=== PATIENT | female | born 1980 | race African-American/Black ===

== ENCOUNTER 2017-08-26 14:42 | Inpatient (IN) ==
[2017-08-26] MEDS ORDERED: LEVOFLOXACIN INJ 750 MG in PREMIX 1 EACH IV STA (15:04)
[2017-08-26] MEDS ORDERED: ONDANSETRON 4 MG/2 ML VIAL IV STA (15:04)
[2017-08-26] MEDS ORDERED: methylPREDNISolone SOD SUC 125 MG/2 ML VIAL IV STA ×2 (15:04→16:28)
[2017-08-26] MEDS ORDERED: ALBUTEROL NEB SOLN 5 MG/ML 20 ML/BOTTLE RESP TX SCH (15:30)
[2017-08-26 15:49] LABS: Basophils % 0.3 % (0.0-0.8); Eosinophils # 0.1 10*3/uL (0.0-0.87); Eosinophils % 0.5 % (0.00-10.9); Hematocrit 36.2 VOL% (35.7-47.0); Hemoglobin 11.5 GM/DL (12.0-16.0); Immature Granulocytes % 0.7 %; Immature Granulocytes Absolute 0.07 #; Lymphocytes # 0.6 10*3/uL (1.4-4.0); Lymphocytes % 5.8 % (21.3-54.2); Mean Corpuscular HGB Conc 31.8 GM/DL (32-36); Mean Corpuscular Hemoglobin 27 PG (27-34); Mean Corpuscular Volume 84.4 FL (87-102); Mean Platelet Volume 10.5 FL (9.6-12.0); Monocytes # 0.1 10*3/uL (0.11-0.8); Monocytes % 1.3 % (1.7-12.7); Neutrophils # 8.7 10*3/uL (1.4-7.4); Neutrophils % 91.4 % (38.7-73.9); Platelet Count 304 T/CUMM (130-400); Red Blood Count 4.29 MC/CUMM (3.8-5.5); Red Cell Distribution Width 15.9 % (9.3-17.3); White Blood Count 9.6 T/CUMM (4-12)
[2017-08-26 15:58] LABS: PT Patient Result 10.3 SECS; Partial Thromboplastin Time 28.6 SECS (0-40)
[2017-08-26 16:16] LABS: Alanine Aminotransferase 33 U/L (13-56); Albumin 3.7 G/DL (3.4-5.0); Alkaline Phosphatase 55 U/L (45-117); Aspartate Amino Transferase 32 U/L (0-37); Blood Urea Nitrogen 14 MG/DL (7-18); Calcium 8.8 MG/DL (8.5-10.1); Glucose 129 MG/DL (74-106); Osmolality,Calculated 279.5 MOS/KG (273-304); Potassium 3.7 MMOL/L (3.5-5.1); Sodium 139 MMOL/L (136-145); Total Protein 8.2 G/DL (6.4-8.3); Troponin I Only < 0.015 NG/ML (0.00-0.045)
[2017-08-26] MEDS ORDERED: ALBUTEROL NEB SOLN 5 MG/ML 20 ML/BOTTLE CONT NEB STA (16:28)
[2017-08-26 16:36] LABS: Anisocytosis Slight; Band Neutrophils 2 % (0-10); Eosinophils 2 % (0-10); Lymphocytes 6 % (20-55); Segmented Neutrophils 88 % (50-85); Total Cells Counted 100
[2017-08-26 16:37] LABS: Platelet Estimate Normal; Poikilocytosis Slight
[2017-08-26 17:04] LABS: Apearance,Urine CLEAR (Clear); Bilirubin,Urine Negative (Negative); Blood, Urine Negative (Negative); Glucose,Urine (UA) 50 mg/dL (Negative); Ketones,Urine 20 mg/dL (Negative); Mucus,Urine Few /LPF (Occasional); Nitrite,Urine Negative (Negative); Protein,Urine Negative; Squamous Epithelial Cell,Urine Occasional /HPF (0-10); Urine Color Yellow (Yellow); Urine Specific Gravity 1.023 (1.001-1.035); Urine Urobilinogen < 2.0 EU/DL (0.2-1.0); WBC,Urine 1 /HPF (0-6)
[2017-08-26 17:11] LABS: Barbiturates Screen,Urine Negative (Negative); Benzodiazepines Screen,Urine Positive (Negative); Cannabinoid Screen,Urine Negative (Negative); Opiate Screen,Urine Negative (Negative); Phencyclidine Screen,Urine Negative (Negative)
[2017-08-26] MEDS ORDERED: ACETAMINOPHEN 325 MG TABLET PO PRN (18:44)
[2017-08-26] MEDS ORDERED: guaiFENesin/DM ER 600-30 MG TABLET PO PRN (18:44)
[2017-08-26] MEDS ORDERED: methylPREDNISolone SOD SUC 125 MG/2 ML VIAL IV SCH ×2 (19:00→22:00)
[2017-08-26] MEDS ORDERED: DEXTROSE 50% 25 GM/50 ML VIAL IV PRN (19:13)
[2017-08-26] MEDS ORDERED: GLUCAGON 1 MG VIAL IM PRN (19:13)
[2017-08-26] MEDS ORDERED: QUEtiapine 100 MG TABLET PO PRN (19:14)
[2017-08-26] MEDS ORDERED: MONTELUKAST 10 MG TABLET PO SCH (21:00)
[2017-08-26] MEDS: ROSUVASTATIN 20 MG TABLET PO SCH (22:26)
[2017-08-26] MEDS: metFORMIN 500 MG TABLET PO SCH (22:27)
[2017-08-26] MEDS: MONTELUKAST 10 MG TABLET PO SCH (22:27)
[2017-08-26] MEDS: CARVEDILOL 6.25 MG TABLET PO SCH (22:27)
[2017-08-26] MEDS: DOCUSATE SODIUM 100 MG CAPSULE PO SCH (22:27)
[2017-08-26] MEDS: INSULIN GLARGINE 100 UNIT/ML SUBCUT SCH (22:29)
[2017-08-26] MEDS: methylPREDNISolone SOD SUC 40 MG/1 ML VIAL IV SCH (22:37)
[2017-08-27] MEDS: ALBUTEROL 2.5 MG/3 ML NEB RESP TX SCH ×5 (00:18→23:58)
[2017-08-27] MEDS: methylPREDNISolone SOD SUC 40 MG/1 ML VIAL IV SCH (04:43)
[2017-08-27] MEDS: ALBUTEROL 2.5 MG/3 ML NEB RESP TX PRN ×2 (04:58→10:48)
[2017-08-27] MEDS ORDERED: PANTOPRAZOLE 40 MG TABLET PO SCH (09:00)
[2017-08-27] MEDS ORDERED: FUROSEMIDE 20 MG TABLET PO SCH (09:00)
[2017-08-27] MEDS ORDERED: predniSONE 20 MG TABLET PO SCH (09:00)
[2017-08-27] MEDS ORDERED: POTASSIUM CHLORIDE 10 MEQ TABLET PO SCH (09:00)
[2017-08-27] MEDS: INSULIN REGULAR 100 UNIT/ML SUBCUT SCH ×4 (09:21→21:24)
[2017-08-27] MEDS: CARVEDILOL 6.25 MG TABLET PO SCH ×2 (09:23→21:23)
[2017-08-27] MEDS: DOCUSATE SODIUM 100 MG CAPSULE PO SCH ×2 (09:23→21:22)
[2017-08-27] MEDS: PANTOPRAZOLE 40 MG TABLET PO SCH (09:23)
[2017-08-27] MEDS: metFORMIN 500 MG TABLET PO SCH ×2 (09:23→21:22)
[2017-08-27] MEDS: SERTRALINE 100 MG TABLET PO SCH (09:24)
[2017-08-27] MEDS: ONDANSETRON 4 MG/2 ML VIAL IV PRN (09:24)
[2017-08-27] MEDS: methylPREDNISolone SOD SUC 125 MG/2 ML VIAL IV SCH ×3 (14:29→23:32)
[2017-08-27] MEDS: LEVOFLOXACIN INJ 750 MG in PREMIX 1 EACH IV SCH (14:33)
[2017-08-27] MEDS ORDERED: LEVOFLOXACIN 500 MG TABLET PO SCH (15:30)
[2017-08-27] MEDS: ROSUVASTATIN 20 MG TABLET PO SCH (21:22)
[2017-08-27] MEDS: MONTELUKAST 10 MG TABLET PO SCH (21:22)
[2017-08-27] MEDS: INSULIN GLARGINE 100 UNIT/ML SUBCUT SCH (21:24)
[2017-08-28] MEDS: ONDANSETRON 4 MG/2 ML VIAL IV PRN (02:42)
[2017-08-28 05:42] LABS: Basophils % 0.1 % (0.0-0.8); Hematocrit 33.3 VOL% (35.7-47.0); Hemoglobin 10.5 GM/DL (12.0-16.0); Immature Granulocytes Absolute 0.18 #; Lymphocytes # 0.9 10*3/uL (1.4-4.0); Mean Corpuscular HGB Conc 31.5 GM/DL (32-36); Mean Corpuscular Hemoglobin 27 PG (27-34); Mean Corpuscular Volume 85.2 FL (87-102); Mean Platelet Volume 11.1 FL (9.6-12.0); Monocytes # 0.5 10*3/uL (0.11-0.8); Monocytes % 2.5 % (1.7-12.7); Neutrophils # 16.8 10*3/uL (1.4-7.4); Neutrophils % 91.4 % (38.7-73.9); Platelet Count 344 T/CUMM (130-400); Red Blood Count 3.91 MC/CUMM (3.8-5.5); Red Cell Distribution Width 16.6 % (9.3-17.3); White Blood Count 18.4 T/CUMM (4-12)
[2017-08-28] MEDS: methylPREDNISolone SOD SUC 125 MG/2 ML VIAL IV SCH ×4 (05:47→23:56)
[2017-08-28 06:14] LABS: Giant Platelets Few; Hypochromasia 1+; Lymphocytes 4 % (20-55); Ovalocytes Slight; Platelet Estimate Adequate; Segmented Neutrophils 93 % (50-85); Total Cells Counted 100
[2017-08-28 06:45] LABS: Alanine Aminotransferase 25 U/L (13-56); Albumin 3.5 G/DL (3.4-5.0); Alkaline Phosphatase 52 U/L (45-117); Aspartate Amino Transferase 16 U/L (0-37); Bilirubin,Total < 0.39 MG/DL (0.2-1.0); Blood Urea Nitrogen 23 MG/DL (7-18); Calcium 9.2 MG/DL (8.5-10.1); Glucose 220 MG/DL (74-106); Osmolality,Calculated 293.1 MOS/KG (273-304); Potassium 3.8 MMOL/L (3.5-5.1); Sodium 142 MMOL/L (136-145); Total Protein 7.5 G/DL (6.4-8.3)
[2017-08-28] MEDS: ALBUTEROL 2.5 MG/3 ML NEB RESP TX SCH (07:06)
[2017-08-28] MEDS: CARVEDILOL 6.25 MG TABLET PO SCH ×2 (09:04→21:24)
[2017-08-28] MEDS: PANTOPRAZOLE 40 MG TABLET PO SCH (09:04)
[2017-08-28] MEDS: SERTRALINE 100 MG TABLET PO SCH (09:04)
[2017-08-28] MEDS: DOCUSATE SODIUM 100 MG CAPSULE PO SCH ×2 (09:04→21:24)
[2017-08-28] MEDS: metFORMIN 500 MG TABLET PO SCH ×2 (09:04→21:24)
[2017-08-28] MEDS: INSULIN REGULAR 100 UNIT/ML SUBCUT SCH ×4 (09:05→21:25)
[2017-08-28] MEDS: ALBUTEROL 2.5 MG/3 ML NEB RESP TX PRN (11:10)
[2017-08-28 12:39] LABS: Free T4 (Free Thyroxine) 0.83 NG/DL (0.76-1.46); Thyroid Stimulating Hormone 0.118 uIU/ml (0.358-3.74)
[2017-08-28] MEDS: MONTELUKAST 10 MG TABLET PO SCH ×2 (13:17→21:24)
[2017-08-28] MEDS: LEVOFLOXACIN INJ 750 MG in PREMIX 1 EACH IV SCH (13:19)
[2017-08-28] MEDS: ALBUTEROL/IPRATROPIUM 3 ML NEB RESP TX SCH ×2 (14:23→19:18)
[2017-08-28] MEDS: AZTREONAM 2,000 MG in SYRINGE 1 EACH IV SCH ×2 (17:59→23:51)
[2017-08-28] MEDS: ROSUVASTATIN 20 MG TABLET PO SCH (21:24)
[2017-08-28] MEDS: INSULIN GLARGINE 100 UNIT/ML SUBCUT SCH (21:25)
[2017-08-29] MEDS: ALBUTEROL/IPRATROPIUM 3 ML NEB RESP TX PRN (01:01)
[2017-08-29] MEDS: AZTREONAM 2,000 MG in SYRINGE 1 EACH IV SCH ×4 (04:57→22:36)
[2017-08-29] MEDS: methylPREDNISolone SOD SUC 125 MG/2 ML VIAL IV SCH ×3 (05:03→17:28)
[2017-08-29 06:15] LABS: % Iron Saturation 4.6 % (18-50)
[2017-08-29 06:31] LABS: Folate 8.1 NG/ML (5.4-24.0)
[2017-08-29] MEDS: ALBUTEROL/IPRATROPIUM 3 ML NEB RESP TX SCH ×4 (07:22→19:09)
[2017-08-29] MEDS: MONTELUKAST 10 MG TABLET PO SCH ×2 (09:36→20:33)
[2017-08-29] MEDS: metFORMIN 500 MG TABLET PO SCH ×2 (09:36→20:34)
[2017-08-29] MEDS: PANTOPRAZOLE 40 MG TABLET PO SCH (09:36)
[2017-08-29] MEDS: DOCUSATE SODIUM 100 MG CAPSULE PO SCH ×2 (09:36→20:34)
[2017-08-29] MEDS: SERTRALINE 100 MG TABLET PO SCH (09:36)
[2017-08-29] MEDS: INSULIN REGULAR 100 UNIT/ML SUBCUT SCH ×4 (09:37→21:18)
[2017-08-29] MEDS: CARVEDILOL 6.25 MG TABLET PO SCH ×2 (09:37→20:33)
[2017-08-29] MEDS: LEVOFLOXACIN INJ 750 MG in PREMIX 1 EACH IV SCH (12:46)
[2017-08-29] MEDS: FERROUS SULFATE 325 MG TABLET PO SCH ×2 (13:48→20:34)
[2017-08-29] MEDS: ROSUVASTATIN 20 MG TABLET PO SCH (20:33)
[2017-08-29] MEDS: INSULIN GLARGINE 100 UNIT/ML SUBCUT SCH (21:19)
[2017-08-30] MEDS: ALBUTEROL/IPRATROPIUM 3 ML NEB RESP TX PRN (00:22)
[2017-08-30] MEDS: methylPREDNISolone SOD SUC 125 MG/2 ML VIAL IV SCH ×3 (02:57→12:17)
[2017-08-30] MEDS: AZTREONAM 2,000 MG in SYRINGE 1 EACH IV SCH ×2 (04:39→11:22)
[2017-08-30 06:38] LABS: Basophils % 0.1 % (0.0-0.8); Hematocrit 34.2 VOL% (35.7-47.0); Immature Granulocytes % 1.6 %; Immature Granulocytes Absolute 0.26 #; Lymphocytes # 1.1 10*3/uL (1.4-4.0); Lymphocytes % 6.8 % (21.3-54.2); Mean Corpuscular HGB Conc 32.2 GM/DL (32-36); Mean Corpuscular Hemoglobin 27 PG (27-34); Mean Corpuscular Volume 83.8 FL (87-102); Mean Platelet Volume 10.7 FL (9.6-12.0); Monocytes # 0.7 10*3/uL (0.11-0.8); Monocytes % 4.4 % (1.7-12.7); Neutrophils # 14.1 10*3/uL (1.4-7.4); Neutrophils % 87.1 % (38.7-73.9); Platelet Count 342 T/CUMM (130-400); Red Blood Count 4.08 MC/CUMM (3.8-5.5); Red Cell Distribution Width 15.9 % (9.3-17.3); White Blood Count 16.2 T/CUMM (4-12)
[2017-08-30 07:00] LABS: Bilirubin,Total 0.4 MG/DL (0.2-1.0); Calcium 8.9 MG/DL (8.5-10.1); Osmolality,Calculated 286.3 MOS/KG (273-304); Potassium 3.8 MMOL/L (3.5-5.1); Total Protein 7.3 G/DL (6.4-8.3)
[2017-08-30] MEDS: ALBUTEROL/IPRATROPIUM 3 ML NEB RESP TX SCH ×2 (07:58→11:14)
[2017-08-30] MEDS: INSULIN REGULAR 100 UNIT/ML SUBCUT SCH ×2 (11:21→12:17)
[2017-08-30] MEDS: LEVOFLOXACIN INJ 750 MG in PREMIX 1 EACH IV SCH (11:23)
[2017-08-30] MEDS: MONTELUKAST 10 MG TABLET PO SCH (11:25)
[2017-08-30] MEDS: SERTRALINE 100 MG TABLET PO SCH (11:26)
[2017-08-30] MEDS: CARVEDILOL 6.25 MG TABLET PO SCH (11:26)
[2017-08-30] MEDS: FERROUS SULFATE 325 MG TABLET PO SCH (11:26)
[2017-08-30] MEDS: PANTOPRAZOLE 40 MG TABLET PO SCH (11:26)
[2017-08-30] MEDS: DOCUSATE SODIUM 100 MG CAPSULE PO SCH (11:26)
[2017-08-30] MEDS: metFORMIN 500 MG TABLET PO SCH (11:26)
[2017-08-30] MEDS ORDERED: ALUMINUM/MAGNES/SIMETH MAX STR 30 ML UDCUP PO PRN (12:04)
[2017-08-30 12:45] VITALS: BP 154/89
== END 2017-08-30 14:43 | disposition home or self-care (01) | DRG 202 ==
LOC: EDBD → EDUNIT# → N.EDINP 14:42 → N.ED 14:42 → N.4E 20:58 → SUATTDRO 08-27 11:39
PROVIDERS: ADMIT Internal Medicine Cardiovascular Disease; ATTEND Internal Medicine

== ENCOUNTER 2017-09-16 11:08 | Inpatient (IN) ==
[2017-09-16] MEDS ORDERED: methylPREDNISolone SOD SUC 40 MG/1 ML VIAL IV STA (11:28)
[2017-09-16] MEDS ORDERED: ALBUTEROL 2.5 MG/3 ML NEB RESP TX STA (11:28)
[2017-09-16] MEDS ORDERED: SODIUM CHLORIDE 0.9% 1,000 ML IV STA (11:28)
[2017-09-16] MEDS ORDERED: methylPREDNISolone SOD SUC 125 MG/2 ML VIAL ONE (11:55)
[2017-09-16 12:42] LABS: Calcium 7.7 MG/DL (8.5-10.1); Potassium 3.1 MMOL/L (3.5-5.1)
[2017-09-16] MEDS ORDERED: POTASSIUM CHLORIDE 20 MEQ TABLET PO STA (12:53)
[2017-09-16 13:24] LABS: Basophils % 0.3 % (0.0-0.8); Eosinophils % 10.5 % (0.00-10.9); Hematocrit 34.8 VOL% (35.7-47.0); Hemoglobin 11.2 GM/DL (12.0-16.0); Immature Granulocytes % 0.4 %; Immature Granulocytes Absolute 0.04 #; Lymphocytes # 1.8 10*3/uL (1.4-4.0); Lymphocytes % 19.8 % (21.3-54.2); Mean Corpuscular HGB Conc 32.2 GM/DL (32-36); Mean Corpuscular Hemoglobin 28 PG (27-34); Mean Platelet Volume 11.5 FL (9.6-12.0); Monocytes # 0.6 10*3/uL (0.11-0.8); Monocytes % 6.2 % (1.7-12.7); Neutrophils # 5.7 10*3/uL (1.4-7.4); Neutrophils % 62.8 % (38.7-73.9); Platelet Count 234 T/CUMM (130-400); Red Cell Distribution Width 17.5 % (9.3-17.3); White Blood Count 9.1 T/CUMM (4-12)
[2017-09-16] MEDS ORDERED: ONDANSETRON 4 MG/2 ML VIAL IV PRN (13:32)
[2017-09-16] MEDS ORDERED: DEXTROSE 50% 25 GM/50 ML VIAL IV PRN (13:32)
[2017-09-16] MEDS ORDERED: GLUCAGON 1 MG VIAL IM PRN (13:32)
[2017-09-16] MEDS ORDERED: ACETAMINOPHEN 325 MG TABLET PO PRN (13:32)
[2017-09-16] MEDS ORDERED: ALBUTEROL 2.5 MG/3 ML NEB RESP TX PRN (13:37)
[2017-09-16] MEDS ORDERED: ENOXAPARIN 40 MG/0.4 ML SYRINGE SUBCUT SCH (14:00)
[2017-09-16] MEDS ORDERED: AZITHROMYCIN INJ 500 MG in SODIUM CHLORIDE 0.9% 250 ML IV SCH (14:00)
[2017-09-16 14:28] LABS: ABG Base Excess -3.4 MMOL/L (-2.5-2.5); ABG HCO3 21.6 MMOL/L (20-26); ABG Oxygen Saturation 97.6 % (95-100); ABG PCO2 34.8 MM HG (35-48); ABG PH 7.388 (7.35-7.45); ABG TCO2 18.8 MMOL/L (23-27)
[2017-09-16] MEDS ORDERED: LORATADINE 10 MG TABLET PO PRN (16:00)
[2017-09-16] MEDS: INSULIN LISPRO 100 UNIT/ML SUBCUT SCH ×2 (18:40→20:16)
[2017-09-16] MEDS: methylPREDNISolone SOD SUC 125 MG/2 ML VIAL IV SCH (18:49)
[2017-09-16] MEDS: ALBUTEROL/IPRATROPIUM 3 ML NEB RESP TX SCH (19:31)
[2017-09-16 19:36] LABS: Barbiturates Screen,Urine Negative (Negative); Benzodiazepines Screen,Urine Negative (Negative); Cannabinoid Screen,Urine Negative (Negative); Opiate Screen,Urine Negative (Negative); Phencyclidine Screen,Urine Negative (Negative)
[2017-09-16] MEDS: ALUMINUM/MAGNES/SIMETH MAX STR 30 ML UDCUP PO PRN (20:16)
[2017-09-16] MEDS ORDERED: MONTELUKAST 10 MG TABLET PO SCH (21:00)
[2017-09-17] MEDS: ALBUTEROL/IPRATROPIUM 3 ML NEB RESP TX SCH ×2 (01:18→06:44)
[2017-09-17] MEDS: methylPREDNISolone SOD SUC 125 MG/2 ML VIAL IV SCH ×2 (02:29→09:00)
[2017-09-17 07:37] LABS: Calcium 8.9 MG/DL (8.5-10.1); Potassium 3.9 MMOL/L (3.5-5.1); Thyroid Stimulating Hormone 0.274 uIU/ml (0.358-3.74)
[2017-09-17] MEDS: INSULIN LISPRO 100 UNIT/ML SUBCUT SCH ×2 (08:59→11:37)
[2017-09-17] MEDS ORDERED: PANTOPRAZOLE 40 MG TABLET PO SCH ×2 (09:00→21:00)
[2017-09-17] MEDS ORDERED: POTASSIUM CHLORIDE 10 MEQ TABLET PO SCH (09:00)
[2017-09-17] MEDS: ALUMINUM/MAGNES/SIMETH MAX STR 30 ML UDCUP PO PRN (09:12)
[2017-09-17] MEDS ORDERED: QUEtiapine 100 MG TABLET PO PRN (10:32)
[2017-09-17] MEDS ORDERED: predniSONE 20 MG TABLET PO SCH (11:00)
[2017-09-17] MEDS ORDERED: FUROSEMIDE 20 MG TABLET PO SCH (11:00)
[2017-09-17] MEDS ORDERED: SERTRALINE 100 MG TABLET PO SCH (11:00)
[2017-09-17 12:10] VITALS: BP 114/66
[2017-09-17] MEDS ORDERED: metFORMIN 500 MG TABLET PO SCH (21:00)
[2017-09-17] MEDS ORDERED: ROSUVASTATIN 20 MG TABLET PO SCH (21:00)
[2017-09-17] MEDS ORDERED: CARVEDILOL 6.25 MG TABLET PO SCH (21:00)
[2017-09-17] MEDS ORDERED: FERROUS SULFATE 325 MG TABLET PO SCH (21:00)
[2017-09-17] MEDS ORDERED: INSULIN GLARGINE 100 UNIT/ML SUBCUT SCH (21:00)
== END 2017-09-17 13:59 | disposition home health service (06) | DRG 202 ==
LOC: N.ED 11:08 → SUATTDRO 13:10 → N.EDINP 13:10 → N.4E 16:13
PROVIDERS: ADMIT Internal Medicine; ATTEND Internal Medicine